=== PATIENT | male | born 1945 | race Caucasian/White ===

== ENCOUNTER → 2024-06-24 10:36 | Outpatient (REF) | payer MEDICARE, OTHER, SELFPAY | LOC: RAD 10:36 | PROVIDERS: ATTENDING PHYSICIAN Family Medicine | DX: H93.A9 Pulsatile tinnitus, unspecified ear (principal); I65.23 Occlusion and stenosis of bilateral carotid arteries | CPT/HCPCS: 93880 ==

== ENCOUNTER → 2024-08-09 11:14 | Outpatient (REF) | payer MEDICARE, OTHER, SELFPAY | LOC: HWRCS 11:14 | PROVIDERS: ATTENDING PHYSICIAN Internal Medicine Cardiovascular Disease; FAMILY PHYSICIAN Family Medicine | DX: I10 Essential (primary) hypertension (principal) | CPT/HCPCS: 93306 ==

== ENCOUNTER → 2024-09-13 13:27 | Outpatient (REF) | payer MEDICARE, OTHER, SELFPAY ==
[2024-09-13 16:21] LABS: Blood Urea Nitrogen 23 mg/dl (9-20)
== END ==
LOC: HWLAB 13:27
PROVIDERS: ATTENDING PHYSICIAN Otolaryngology; FAMILY PHYSICIAN Family Medicine
DX: H90.3 Sensorineural hearing loss, bilateral (principal); H93.A1 Pulsatile tinnitus, right ear
CPT/HCPCS: 36415; 82565; 84520

== ENCOUNTER → 2024-09-21 12:08 | Outpatient (REF) | payer MEDICARE, OTHER, SELFPAY | LOC: RAD 12:08 | PROVIDERS: ATTENDING PHYSICIAN Otolaryngology; FAMILY PHYSICIAN Family Medicine | DX: H90.3 Sensorineural hearing loss, bilateral (principal) | CPT/HCPCS: 70496; Q9967 ==

== ENCOUNTER → 2025-04-29 14:28 | Outpatient (REF) | payer MEDICARE, OTHER, SELFPAY | LOC: MRI 3T 14:28 | PROVIDERS: ATTENDING PHYSICIAN Surgery; FAMILY PHYSICIAN Family Medicine | DX: R97.20 Elevated prostate specific antigen [PSA] (principal) | CPT/HCPCS: 72197; A9575 ==

== ENCOUNTER 2025-05-26 06:20 | Day surgery (SDC) | payer MEDICARE, OTHER, SELFPAY | END 2025-05-26 11:24 | disposition home or self-care (01) | LOC: GI 06:20 | PROVIDERS: ATTENDING PHYSICIAN Internal Medicine Gastroenterology; FAMILY PHYSICIAN Family Medicine | DX: Z12.11 Encounter for screening for malignant neoplasm of colon (principal); K57.30 Diverticulosis of large intestine without perforation or abscess without bleeding; K64.8 Other hemorrhoids; Z86.0100 Personal history of colon polyps, unspecified | CPT/HCPCS: G0105 ==